=== PATIENT | male | born 1995 | race Caucasian/White ===

== ENCOUNTER 2018-04-14 20:51 | Emergency (ER) | payer OTHER ==
[~2018-04-14] VITALS: Ht 180.3 cm; Wt 131.5 kg
[~2018-04-14 20:51] MED LIST: ALEVE220 M1 PO; ANTIBIOTIC; BACTRIM DS TAB1 EACH PO; FLEXERIL PO; IBUPROFEN 800800 M1 PO; INTUNIV4 MG; INTUNIV4 MG PO; NOHOMEMEDICATIONS; STRATTERA100 MG; STRATTERA100 MG PO; ZPAK PO
[2018-04-14 21:45] LABS: ABSOLUTE BASOPHILS 0.1 thou/uL (0.0-0.2); ABSOLUTE LYMPHOCYTES 1.2 thou/uL (0.8-5.3); ABSOLUTE MONOCYTES 0.8 thou/uL (0.0-1.2); ABSOLUTE NEUTROPHILS 4.7 thou/uL (1.6-8.1); BASOPHILS 0.9 %; EOSINOPHILS 0.6 %; HEMATOCRIT 43.8 % (42.0-52.0); HEMOGLOBIN 14.9 gm/dL (14.0-18.0); LYMPHOCYTES 17.1 %; MCH 30.7 pg (26.0-34.0); MCHC 33.9 g/dL (28.0-37.0); MCV 90.4 fL (80.0-100.0); MONOCYTES 12.1 %; MPV 10.1 fl. (7.2-11.1); NUCLEATED RBCS 0 /100WBC; PLATELET COUNT* 186 thou/uL (150-400); POLYS 69.3 %; RBC 4.84 mil/uL (4.50-6.00); WBC 6.7 thou/uL (4.0-11.0)
[2018-04-14 22:03] LABS: CALCIUM 8.6 mg/dL (8.5-10.1); CREATININE 0.9 mg/dL (0.6-1.3); POTASSIUM 3.3 mmol/L (3.5-5.1)
[2018-04-14 22:07] LABS: ALBUMIN 3.6 g/dL (3.4-5.0); TOTAL BILIRUBIN 1.5 mg/dL (<0.1-1.0); TOTAL PROTEIN 7.5 g/dL (6.4-8.2)
[2018-04-14 23:44] LABS: URINE BLOOD NEGATIVE (Negative); URINE CLARITY CLEAR; URINE COLOR YELLOW; URINE GLUCOSE-RANDOM NEGATIVE (Negative); URINE KETONES NEGATIVE (Negative); URINE LEUKOCYTES-REFLEX NEGATIVE (Negative); URINE NITRITE-REFLEX NEGATIVE (Negative); URINE PROTEIN TRACE (Negative); URINE SPECIFIC GRAVITY 1.025 (1.005-1.030)
[2018-04-14 23:49] LABS: URINE BILIRUBIN 1+ (Negative)
[2018-04-14 23:53] LABS: ICTOTEST (BILI CONFIRMATORY) Negative (Negative)
[2018-04-15 00:05] VITALS: BP 151/88
== END 2018-04-15 00:05 | disposition home or self-care (01) ==
LOC: M.ERS 20:51
PROVIDERS: Nurse Practitioner Family
DX: J06.9 Acute upper respiratory infection, unspecified (principal); E86.0 Dehydration; J45.909 Unspecified asthma, uncomplicated; F90.9 Attention-deficit hyperactivity disorder, unspecified type; G43.909 Migraine, unspecified, not intractable, without status migrainosus; Z90.89 Acquired absence of other organs

== ENCOUNTER 2018-05-20 17:38 | Emergency (ER) | payer OTHER ==
[~2018-05-20] VITALS: Ht 180.3 cm; Wt 131.5 kg
[2018-05-20] MEDS ORDERED: TRAMADOL 50 MG50 MG PO (18:36)
[2018-05-20 18:53] VITALS: BP 139/99
== END 2018-05-20 18:55 | disposition home or self-care (01) ==
LOC: M.ERS 17:38
DX: S82.892A Other fracture of left lower leg, initial encounter for closed fracture (principal); W13.9XXA Fall from, out of or through building, not otherwise specified, initial encounter; Y93.89 Activity, other specified; Y92.89 Other specified places as the place of occurrence of the external cause; Y99.8 Other external cause status; J45.909 Unspecified asthma, uncomplicated; F90.9 Attention-deficit hyperactivity disorder, unspecified type; G43.909 Migraine, unspecified, not intractable, without status migrainosus

== ENCOUNTER 2018-05-24 15:36 | Emergency (ER) | payer OTHER ==
[~2018-05-24] VITALS: Ht 180.3 cm; Wt 131.5 kg
[~2018-05-24 15:36] MED LIST changes: +TRAMADOL 50 MG50 MG PO
[2018-05-24] MEDS ORDERED: NORCO 5-325 TA1 EACH PO (16:19)
[2018-05-24 17:04] VITALS: BP 151/95
== END 2018-05-24 17:05 | disposition home or self-care (01) ==
LOC: M.ERS 15:36
DX: S82.892A Other fracture of left lower leg, initial encounter for closed fracture (principal); F90.9 Attention-deficit hyperactivity disorder, unspecified type; J45.909 Unspecified asthma, uncomplicated; G43.909 Migraine, unspecified, not intractable, without status migrainosus; X58.XXXA Exposure to other specified factors, initial encounter; Y93.89 Activity, other specified; Y92.89 Other specified places as the place of occurrence of the external cause; Y99.8 Other external cause status

== ENCOUNTER 2018-10-19 20:24 | Emergency (ER) | payer OTHER ==
[~2018-10-19] VITALS: Ht 180.3 cm; Wt 127.0 kg
[~2018-10-19 20:24] MED LIST changes: +NORCO 5-325 TA1 EACH PO
[2018-10-19] MEDS ORDERED: CYCLOBENZAPRINE5 MG PO (21:58)
[2018-10-19 22:05] VITALS: BP 158/98
== END 2018-10-19 22:06 | disposition home or self-care (01) ==
LOC: M.ERS 20:24
DX: R07.89 Other chest pain (principal); W19.XXXA Unspecified fall, initial encounter; Y93.89 Activity, other specified; Y92.89 Other specified places as the place of occurrence of the external cause; Y99.8 Other external cause status; J45.909 Unspecified asthma, uncomplicated

== ENCOUNTER 2019-07-08 06:40 | Emergency (ER) | payer OTHER ==
[~2019-07-08] VITALS: Ht 180.3 cm; Wt 131.5 kg
[~2019-07-08 06:40] MED LIST changes: +CYCLOBENZAPRINE5 MG PO
[2019-07-08] MEDS ORDERED: DIPHENHIST50 MG PO (07:48)
[2019-07-08] MEDS ORDERED: PREDNISONE 10 M10 M1 PO (07:48)
[2019-07-08 07:58] VITALS: BP 148/79
== END 2019-07-08 07:59 | disposition home or self-care (01) ==
LOC: M.ERS 06:40
DX: L25.9 Unspecified contact dermatitis, unspecified cause (principal); J45.909 Unspecified asthma, uncomplicated; F90.9 Attention-deficit hyperactivity disorder, unspecified type; G43.909 Migraine, unspecified, not intractable, without status migrainosus

== ENCOUNTER 2019-10-29 12:03 | Emergency (ER) | payer OTHER ==
[~2019-10-29] VITALS: Ht 180.3 cm; Wt 127.0 kg
[~2019-10-29 12:03] MED LIST changes: +DIPHENHIST50 MG PO; +PREDNISONE 10 M10 M1 PO
[2019-10-29] MEDS ORDERED: NORCO 5-325 TA1 EAC1 PO (12:24)
[2019-10-29] MEDS ORDERED: FLEXERIL PO (12:24)
[2019-10-29] MEDS ORDERED: IBUPROFEN 800800 M1 PO (12:24)
[2019-10-29] MEDS ORDERED: PREDNISONE50 MG PO (12:24)
[2019-10-29 12:33] VITALS: BP 135/65
== END 2019-10-29 12:33 | disposition home or self-care (01) ==
LOC: M.ERS 12:03
DX: M54.41 Lumbago with sciatica, right side (principal); J45.909 Unspecified asthma, uncomplicated; F90.9 Attention-deficit hyperactivity disorder, unspecified type; G43.909 Migraine, unspecified, not intractable, without status migrainosus; Z90.89 Acquired absence of other organs

== ENCOUNTER 2020-05-06 12:27 | Emergency (ER) | payer OTHER ==
[~2020-05-06] VITALS: Ht 180.3 cm; Wt 124.7 kg
[~2020-05-06 12:27] MED LIST changes: +NORCO 5-325 TA1 EAC1 PO; +PREDNISONE50 MG PO
[2020-05-06 13:02] VITALS: BP 158/108
== END 2020-05-06 13:13 | disposition home or self-care (01) ==
LOC: M.ERS 12:27
DX: R11.10 Vomiting, unspecified (principal); J45.909 Unspecified asthma, uncomplicated; G43.909 Migraine, unspecified, not intractable, without status migrainosus; F90.9 Attention-deficit hyperactivity disorder, unspecified type

== ENCOUNTER 2020-07-25 12:12 | Emergency (ER) | payer OTHER ==
[~2020-07-25] VITALS: Ht 180.3 cm; Wt 131.5 kg
[2020-07-25] MEDS ORDERED: IBUPROFEN 800800 M1 PO (14:38)
[2020-07-25] MEDS ORDERED: CIPRO500 MG PO (14:38)
[2020-07-25 14:45] VITALS: BP 150/91
== END 2020-07-25 14:45 | disposition home or self-care (01) ==
LOC: M.ERS 12:12
DX: S91.332A Puncture wound without foreign body, left foot, initial encounter (principal); F12.90 Cannabis use, unspecified, uncomplicated; J45.909 Unspecified asthma, uncomplicated; G43.909 Migraine, unspecified, not intractable, without status migrainosus; W22.8XXA Striking against or struck by other objects, initial encounter; Y93.01 Activity, walking, marching and hiking; Y92.89 Other specified places as the place of occurrence of the external cause; Y99.9 Unspecified external cause status

== ENCOUNTER 2021-04-02 21:00 | Emergency (ER) | payer OTHER ==
[~2021-04-02] VITALS: Ht 177.8 cm; Wt 131.5 kg
[~2021-04-02 21:00] MED LIST changes: +CIPRO500 MG PO
[2021-04-02] MEDS ORDERED: MEDROLDOSEPACK PO (22:04)
[2021-04-02] MEDS ORDERED: HYDROCORTISONE3011 TOP (22:04)
[2021-04-02 22:13] VITALS: BP 150/102
== END 2021-04-02 22:13 | disposition home or self-care (01) ==
LOC: M.ERS 21:00
DX: L25.9 Unspecified contact dermatitis, unspecified cause (principal); J45.909 Unspecified asthma, uncomplicated; G43.909 Migraine, unspecified, not intractable, without status migrainosus